=== PATIENT | female | born 1985 | race Caucasian/White ===

== ENCOUNTER 2022-10-19 18:22 | Inpatient (IN) ==
[2022-10-19] MEDS ORDERED: CIPROFLOXACIN / D5W 400 MG/200 ML BAG IV STA (18:53)
--- NOTE | 2022-10-19 18:57 | Emergency Department Note ---
Impression & Plan Pyelonephritis, UTI (urinary tract infection), Positive blood culture ED Provider Note NAME: LYNDA NAVAS AGE: 37 SEX: F : 1985 ARRIVES VIA: Walk-In INFORMANT: Patient ED PROVIDER(S): David Chapman DO CHIEF COMPLAINT: left back pain HPI: Patient is a 37-year-old female who presents to the ER for left flank pain that started last . Patient denies any headache or change in vision. No chest pain or shortness of breath. No belly pain but does have left back pain. No urinary symptoms but admits to frequent UTIs. Patient was seen and evaluated and treated for UTI. ESBL E. coli isolated from urine culture. MRSE isolated from *1 of 1* blood cultures. MRSE may be a skin contaminant, but given lack of 2nd culture, this is difficult to exclude and consequently patient was called back to the ER. Patient notes that she still having sweats at night and combination with left lower back pain. Denies all other complaints at this time but does feel weak and rundown. PAST MEDICAL HISTORY:See Below PAST SURGICAL HISTORY:See Below FAMILY HISTORY:See Below SOCIAL HISTORY:See Below HOME MEDICATIONS:See Below ALLERGIES:See Below VITALS:See Below PHYSICAL EXAMINATION: GENERAL: Sitting up in bed, alert, well appearing, well nourished, no distress, non-toxic, obese EYE EXAM: normal conjunctiva. OROPHARYNX:mucous membranes are moist LUNGS: Clear to auscultation. Normal chest wall mechanics HEART: no murmurs, S1 normal and S2 normal ABDOMEN: abdomen soft, non-tender, normo-active bowel sounds, no masses, no rebound or guarding. BACK: Back is symmetrical on inspection and there is no deformity, no midline tenderness, mild tenderness in the left CVA. SKIN: no rashes and no bruising UPPER EXTREMITIES: upper extremities are grossly normal. LOWER EXTREMITIES: No pitting edema. NEURO EXAM: Normal sensorium, cranial nerves II-XII grossly intact, normal speech, no gross weakness of arms, no gross weakness of legs. MEDICAL DECISION MAKING: Patient is a 37-year-old female who presents ER for above-stated complaint. IV was established blood work was obtained. External records reviewed. Labs show no significant leukocytosis or anemia. BMP with LFTs bilirubin was unremarkable. Pro-Saqib was normal. Troponin was negative. Chest x-ray was clean. Patient was given IV Toradol and Cipro due to sensitivities. Do favor the blood culture was contaminated she notes that she is feeling worse and does not believe she can go home. I did discuss case with Dr. Epps for further evaluation management treatment. Patient was admitted. Triage Nursing notes reviewed. Limited review of prior medical records performed Vital Signs: reviewed and remarkable for HTN Differential diagnosis: Differential diagnoses includes but is not limited to gastritis, peptic ulcer disease, GERD, gallbladder disease, pancreatitis, small bowel obstruction, appendicitis, diverticulitis, hernia, urinary tract infection, torsion, /ectopic (if female), perforation, trauma, infectious. ER treatment provided: See below Diagnostics interpreted by me include EKG and cardiac monitoring as listed below: -Cardiac Monitoring: An order was placed for continuous cardiac monitoring. The monitor shows a rate of 80 with sinus rhythm. -ECG: none -Laboratory studies:Interpreted by me as stated above in MDM and shown below. Imaging studies: Xrays: As interpreted by me:none CTs show: none Consultation(s): As described in MDM Procedures:none Critical Care: None Past Med/Surg History Social History Smoking Status: Never smoker Preferred Language: Senegalese Feels Safe at Home: Yes Allergies Allergies Allergy/AdvReac Type Severity Reaction Status Date / Time clindamycin Allergy Rash Verified 09/03/22 21:06 Home Meds Home Medications Medication Instructions Recorded Confirmed buspirone 5 mg tablet 5 mg PO BID 10/19/22 10/19/22 citalopram 40 mg tablet 40 mg PO DAILY 10/19/22 10/19/22 cyclobenzaprine 10 mg tablet 10 mg PO TID PRN Muscle Spasm 10/19/22 10/19/22 dulaglutide 4.5 mg/0.5 mL 4.5 mg subcut WK 10/19/22 10/19/22 subcutaneous pen injector (Trulicity) duloxetine 30 mg capsule,delayed 30 mg PO DAILY 10/19/22 10/19/22 release omeprazole 20 mg capsule,delayed 20 mg PO DAILY 10/19/22 10/19/22 release Previous Rx's Medication Instructions Recorded cefdinir 300 mg capsule 300 mg PO BID #14 caps 10/17/22 Results & Data (ED) Vital Signs Vital Signs - 24 hr 10/19/22 18:29 10/19/22 19:30 10/19/22 19:30 Temperature 36.8 C Temperature Source Temporal Artery Scan Pulse Rate 88 Pulse Rate [Finger] 88 Pulse Rate from SpO2 Sensor Pulse Rhythm [Finger] Regular Pulse Strength [Finger] Normal Respiratory Rate 18 30 H Respiratory Effort / Characteristics Non-Labored Respiratory Depth Normal Respiratory Pattern Regular Blood Pressure 142/82 H Blood Pressure Mean 102 Pulse Oximetry 97 96 Oxygen Delivery Method Room Air Room Air Room Air Sepsis Recent Fever Within 48 Hours No Sepsis New/Unexplained Change in Mental Status No Sepsis Action Taken by Nursing No Action Required 10/19/22 19:34 10/19/22 20:00 10/19/22 20:30 Temperature Temperature Source Pulse Rate 81 84 Pulse Rate [Finger] Pulse Rate from SpO2 Sensor 82 84 Pulse Rhythm [Finger] Pulse Strength [Finger] Respiratory Rate 22 23 Respiratory Effort / Characteristics Respiratory Depth Respiratory Pattern Blood Pressure 128/94 118/79 Blood Pressure Mean 105 92 Pulse Oximetry 96 96 Oxygen Delivery Method Sepsis Recent Fever Within 48 Hours Sepsis New/Unexplained Change in Mental Status Sepsis Action Taken by Nursing 10/19/22 20:30 10/19/22 21:12 10/19/22 21:12 Temperature Temperature Source Pulse Rate 90 84 Pulse Rate [Finger] Pulse Rate from SpO2 Sensor 89 Pulse Rhythm [Finger] Pulse Strength [Finger] Respiratory Rate 25 H 16 Respiratory Effort / Characteristics Respiratory Depth Respiratory Pattern Blood Pressure 137/84 Blood Pressure Mean 101 Pulse Oximetry 96 Oxygen Delivery Method Sepsis Recent Fever Within 48 Hours Sepsis New/Unexplained Change in Mental Status Sepsis Action Taken by Nursing 10/19/22 19:33 10/19/22 21:30 10/19/22 21:30 Temperature Temperature Source Pulse Rate 86 82 Pulse Rate [Finger] Pulse Rate from SpO2 Sensor 81 Pulse Rhythm [Finger] Pulse Strength [Finger] Respiratory Rate 26 H Respiratory Effort / Characteristics Respiratory Depth Respiratory Pattern Blood Pressure 113/73 Blood Pressure Mean 86 Pulse Oximetry 96 Oxygen Delivery Method Sepsis Recent Fever Within 48 Hours Sepsis New/Unexplained Change in Mental Status Sepsis Action Taken by Nursing Laboratory Data 10/19/22 19:49 10/19/22 19:49 Lab Results 10/19/22 10/19/22 10/19/22 Range/Units 19:49 19:49 19:49 WBC 9.39 (4.8-10.8) K/ul RBC 4.04 L (4.20-5.40) M/uL Hgb 12.1 (12.0-16.0) g/dl Hct 35.6 L (37.0-47.0) % MCV 88.1 (80.0-100.0) fL MCH 30.0 (25.0-34.0) pg MCHC 34.0 (32.0-36.0) g/dL RDW Std Deviation 43.7 (36.4-46.3) fL RDW Coeff of Neo 13.5 (11.5-14.5) % Plt Count 262 (130-400) K/uL MPV 11.0 (9.4-12.4) fL Immature Gran % (Auto) 0.2 % Neut % (Auto) 62.0 % Lymph % (Auto) 29.1 % [place] % (Auto) 7.2 % Eos % (Auto) 1.1 % Baso % (Auto) 0.4 % Neut # (Auto) 5.82 (1.40-6.50) K/uL Lymph # (Auto) 2.73 (1.20-3.40) K/uL [place] # (Auto) 0.68 H (0.11-0.59) K/uL Eos # (Auto) 0.10 (0.00-0.50) K/uL Baso # (Auto) 0.04 (0.00-0.20) K/uL Immature Gran # (Auto) 0.02 (0.01-0.20) K/uL Sodium 139 (136-145) mmol/L Potassium 3.7 (3.5-5.1) mmol/L Chloride 106 (98-107) mmol/L Carbon Dioxide 26 (21-32) mmol/L Anion Gap 7 (3-11) BUN 13 (6-23) mg/dl Creatinine 0.72 (0.6-1.2) mg/dl Est Cr Clr Drug Dosing 177.9 ml/min Est GFR ( Amer) 125.8 ml/min Est GFR (Non-Af Amer) 108.5 ml/min BUN/Creatinine Ratio 18.1 (10-20) Glucose 94 (70-99(Fasting)) mg/dl Lactate 0.8 (0.4-2.0) mmol/L Calcium 9.3 (8.6-10.3) mg/dl Magnesium 2.1 (1.7-2.4) mg/dl Total Bilirubin 0.3 (0.2-1.0) mg/dl Direct Bilirubin 0.1 (0-0.2) mg/dl AST 15 (13-39) U/L ALT 25 (7-52) U/L Alkaline Phosphatase 101 (34-104) U/L Troponin I High Sens 3.4 (0-14) pg/ml Total Protein 6.9 (6.0-8.3) gm/dl Albumin 3.5 (3.4-5.0) gm/dl Procalcitonin (0-0.5) ng/ml 10/19/22 Range/Units 19:49 WBC (4.8-10.8) K/ul RBC (4.20-5.40) M/uL Hgb (12.0-16.0) g/dl Hct (37.0-47.0) % MCV (80.0-100.0) fL MCH (25.0-34.0) pg MCHC (32.0-36.0) g/dL RDW Std Deviation (36.4-46.3) fL RDW Coeff of Neo (11.5-14.5) % Plt Count (130-400) K/uL MPV (9.4-12.4) fL Immature Gran % (Auto) % Neut % (Auto) % Lymph % (Auto) % [place] % (Auto) % Eos % (Auto) % Baso % (Auto) % Neut # (Auto) (1.40-6.50) K/uL Lymph # (Auto) (1.20-3.40) K/uL [place] # (Auto) (0.11-0.59) K/uL Eos # (Auto) (0.00-0.50) K/uL Baso # (Auto) (0.00-0.20) K/uL Immature Gran # (Auto) (0.01-0.20) K/uL Sodium (136-145) mmol/L Potassium (3.5-5.1) mmol/L Chloride (98-107) mmol/L Carbon Dioxide (21-32) mmol/L Anion Gap (3-11) BUN (6-23) mg/dl Creatinine (0.6-1.2) mg/dl Est Cr Clr Drug Dosing ml/min Est GFR ( Amer) ml/min Est GFR (Non-Af Amer) ml/min BUN/Creatinine Ratio (10-20) Glucose (70-99(Fasting)) mg/dl Lactate (0.4-2.0) mmol/L Calcium (8.6-10.3) mg/dl Magnesium (1.7-2.4) mg/dl Total Bilirubin (0.2-1.0) mg/dl Direct Bilirubin (0-0.2) mg/dl AST (13-39) U/L ALT (7-52) U/L Alkaline Phosphatase (34-104) U/L Troponin I High Sens (0-14) pg/ml Total Protein (6.0-8.3) gm/dl Albumin (3.4-5.0) gm/dl Procalcitonin < 0.05 (0-0.5) ng/ml Administered Medications Buspirone HCl (Buspirone 5 Mg Tab) 5 mg PO BID MIMA Stop: 11/18/22 23:30 Last Admin: 10/20/22 00:14 Dose: 5 mg Documented By: SOWMYA Lactated Ringer's (Lr) 1,000 mls @ 80 mls/hr IV .[id number] STA Stop: 10/20/22 09:54 Last Admin: 10/19/22 23:32 Dose: 80 mls/hr Documented By: SOWMYA Insulin Aspart (Insulin Aspart Per Unit Charge) 0 units SC ACHS MIMA Stop: 11/18/22 23:30 Last Admin: 10/20/22 00:16 Dose: Not Given Documented By: SOWMYA Co-signed By: BERTA Discontinued Medications Ciprofloxacin (Cipro / D5w) 400 mg in 200 mls @ 100 mls/hr IV NOW STA; Protocol Stop: 10/19/22 20:52 Last Infusion: 10/19/22 23:31 Dose: 0 mls/hr Documented By: Admin: 10/19/22 19:45 Dose: 100 mls/hr Documented By: GREYSON Ketorolac Tromethamine (Ketorolac Tromethamine 15 Mg/Ml Vial) 15 mg IV NOW ONE Stop: 10/19/22 19:49 Last Admin: 10/19/22 20:02 Dose: 15 mg Documented By: GREYSON Imaging Data Radiologist's Impression: Chest X-Ray 10/19/22 18:54 SINGLE VIEW CHEST CLINICAL HISTORY: Sepsis. FINDINGS: An AP, portable, upright chest radiograph is obtained. No prior studies are available for comparison at the time of dictation. The card iomediastinal silhouette is unremarkable. The lungs and pleural spaces are clear. No pneumothorax is seen. The bony thorax is grossly intact. IMPRESSION: No active disease in the chest. ACT 112: Negative or not required by law. Electronically signed by: Sherwin Bautista M.D. 10/19/2022 7:15 PM Discharge Plan Visit Data Chief Complaint: Testing Request Stated Complaint: TEST REQUEST - CALLED BACK BY NURSE FOR BLOOD CULT ED Provider: David Chapman Discharge Problem: Pyelonephritis, UTI (urinary tract infection), Positive blood culture Patient Disposition: Admitted As Inpatient Discharge Instructions Interventions: ED Discharge Assessment Last Done: 10/19/22 22:46
--- NOTE | 2022-10-19 19:17 | XRay Report ---
SINGLE VIEW CHEST CLINICAL HISTORY: Sepsis. FINDINGS: An AP, portable, upright chest radiograph is obtained. No prior studies are available for c omparison at the time of dictation. The cardiomediastinal silhouette is unremarkable. The lungs and p leural spaces are clear. No pneumothorax is seen. The bony thorax is grossly intact. IMPRESSION: No active disease in the chest. ACT 112: Negative or not required by law. Electronically signed by: Sherwin Bautista M.D. 10/19/2022 7:15 PM
[2022-10-19] MEDS ORDERED: KETOROLAC TROMETHAMINE 15 MG/ML VIAL IV ONE (19:48)
[2022-10-19 20:18] LABS: Basophils # (auto) 0.04 K/uL (0.00-0.20); Basophils % (auto) 0.4 %; Eosinophils % (auto) 1.1 %; Hematocrit (blood only) 35.6 % (37.0-47.0); Hemoglobin 12.1 g/dl (12.0-16.0); Immature Granulocytes # (auto) 0.02 K/uL (0.01-0.20); Immature Granulocytes % (auto) 0.2 %; Lymphocytes # (auto) 2.73 K/uL (1.20-3.40); Lymphocytes % (auto) 29.1 %; Mean Corpuscular Volume 88.1 fL (80.0-100.0); Monocytes # (auto) 0.68 K/uL (0.11-0.59); Monocytes % (auto) 7.2 %; Neutrophils # (auto) 5.82 K/uL (1.40-6.50); Platelet Count 262 K/uL (130-400); RDW Coefficient of Variation 13.5 % (11.5-14.5); RDW Standard Deviation 43.7 fL (36.4-46.3); Red Blood Count 4.04 M/uL (4.20-5.40); White Blood Count 9.39 K/ul (4.8-10.8)
[2022-10-19 20:29] LABS: Albumin Level 3.5 gm/dl (3.4-5.0); BUN Creatinine Ratio 18.1 (10-20); Bilirubin Direct 0.1 mg/dl (0-0.2); Bilirubin,Total 0.3 mg/dl (0.2-1.0); Calcium 9.3 mg/dl (8.6-10.3); Creatinine Clr Calc Pharmacy 177.9 ml/min; Est GFR (African American) 125.8 ml/min; Est GFR (Non-African American) 108.5 ml/min; Magnesium 2.1 mg/dl (1.7-2.4); Potassium 3.7 mmol/L (3.5-5.1); Total Protein 6.9 gm/dl (6.0-8.3)
[2022-10-19 20:36] LABS: Troponin I High Sensitivity 3.4 pg/ml (0-14)
[2022-10-19] MEDS ORDERED: LACTATED RINGER'S 1,000 ML IV STA (21:25)
--- NOTE | 2022-10-19 21:50 | History & Physical Report ---
Date of Service October 19, 2022 Assessment & Plan (1) Complicated UTI (urinary tract infection): Plan: Recurrent/persistent ESBL E. coli UTI infections no sepsis for now Gram-positive bacteremia 1 bottle from recent [facility] ER visit (10/17) Possible contaminant Patient currently not septic. DM 2 on Trulicity, well-controlled as of recent hemoglobin A1c of 5.4 last July 2022 hx NAFLD GERD/IBS, baseline symptoms hx chronic back pain/sacroiliitis anxiety/mood disorder, stable GMF Repeat UA, Ertapenem for now Repeat blood CS Urology consult as per patient request Re: Recurrent UTIs ID consult contingent on final CS results ISS BG goal 1 10-1 40, carb count coverage DVT prophylaxis with Lovenox subcu Full code Text document was generated using [employer] voice recognition software. It may contain grammatical or spelling errors. Kindly contact undersigned for clarification of any documentation item in question. History of Present Illness Chief Complaint: Abnormal labs, not feeling well Primary Care Provider: Red Mitchell MD History obtained from patient, family, and records. Medical history significant for DM 2 on Trulicity, NAFLD, GERD, IBS, hyperlipidemia, recent ESBL E. coli UTI, chronic back pain/sacroiliitis, anxiety/mood disorder, past tobacco abuse. 09/03 Patient seen at [facility] ER for headache and UTI complaints. Patient discharged on Keflex course. Urine CS later grew ESBL E. coli. 09/[address] [facility] ER abdominal pain and UTI complaints. Patient discharged on Augmentin course for possible pyelonephritis. [facility] pharmacist later recommended Ciprofloxacin course in place of Augmentin. Patient completed outpatient Ciprofloxacin course. 10/02 Patient underwent outpatient fluoroscopic guided left sacroiliac joint injection for sacroiliitis by [facility] Pain management. 10/10 Patient sustained laceration on her right foot after accidentally stepping on a broken mug. Right foot laceration sutured at [facility]. 10/17 Patient consulted [facility] ER for 5 days history of achy left flank pain symptoms with chills. No hematuria, no fever. No chest pain, no SOB. No acute findings on CT abdomen pelvis. Patient discharged on Cefdinir for UTI. Final urine CS grew ESBL E. coli (ciprofloxacin sensitive) today. 1 bottle blood cultures growing gram-positive cocci in clusters. [facility] pharmacist called patient and recommended ER evaluation. Patient still feeling crappy. IV Ciprofloxacin administered at the ER. 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 Allergies Allergy/AdvReac Type Severity Reaction Status Date / Time clindamycin Allergy Rash Verified 09/03/22 21:06 Home Medications Medication Instructions Recorded Confirmed Type cefdinir 300 mg capsule 300 mg PO BID #14 caps 10/17/22 10/19/22 Rx buspirone 5 mg tablet 5 mg PO BID 10/19/22 10/19/22 History citalopram 40 mg tablet 40 mg PO DAILY 10/19/22 10/19/22 History cyclobenzaprine 10 mg tablet 10 mg PO TID PRN Muscle Spasm 10/19/22 10/19/22 History dulaglutide 4.5 mg/0.5 mL 4.5 mg subcut WK 10/19/22 10/19/22 History subcutaneous pen injector (Trulicity) duloxetine 30 mg capsule,delayed 30 mg PO DAILY 10/19/22 10/19/22 History release omeprazole 20 mg capsule,delayed 20 mg PO DAILY 10/19/22 10/19/22 History release Past Med/Surg History Social History Smoking Status: Never smoker Second Hand Exposure: No; Do You Dip or Chew Tobacco: No; Hx Alcohol Use: No Hx Substance Use: No Preferred Language: Maldivian Communication Ability: Effective Management Retail Intern Required: No Beliefs That Will Affect Care: None Current Living Situation: Family Other Information That Helps Us Care for You: No Feels Safe at Home: Yes Safety Concerns: Feels Safe At This Time Assistive Devices: Glasses Review of Systems Review of Systems: As per HPI, all other systems reviewed and negative Physical Exam Physical Exam: GENERAL: Comfortable, morbidly obese, pleasant, no respiratory distress SKIN: Normal color, warm HEENT: Bespectacled, [place] palpebral conjunctivae, no ptosis, dry buccal mucosa NECK : Supple, short neck, no tenderness CHEST : CTA, no tenderness HEART : RRR, no obvious murmurs ABDOMEN: Some distention, nontender EXTREMITIES : Minimal LE swelling, no LE tenderness, no other conspicuous deformities noted NEUROLOGIC : Coherent, no facial asymmetry, no other gross focality Results & Data Results & Data Vital Signs (Past 12 Hours) Vital Signs Temp Pulse Pulse Resp BP Pulse Ox O2 Del Method 10/19/22 21:12 137/84 10/19/22 21:12 84 16 10/19/22 20:30 90 25 H 96 10/19/22 20:30 118/79 10/19/22 20:00 84 23 128/94 96 10/19/22 19:34 81 22 96 10/19/22 19:30 Room Air 10/19/22 19:30 88 30 H 96 Room Air 10/19/22 18:29 36.8 C 88 18 142/82 H 97 Room Air Laboratory Results Laboratory Results WBC 9.39 K/ul (4.8-10.8) 10/19/22 19:49 RBC 4.04 M/uL (4.20-5.40) L 10/19/22 19:49 Hgb 12.1 g/dl (12.0-16.0) 10/19/22 19:49 Hct 35.6 % (37.0-47.0) L 10/19/22 19:49 MCV 88.1 fL (80.0-100.0) 10/19/22 19:49 MCH 30.0 pg (25.0-34.0) 10/19/22 19:49 MCHC 34.0 g/dL (32.0-36.0) 10/19/22 19:49 RDW Std Deviation 43.7 fL (36.4-46.3) 10/19/22 19:49 RDW Coeff of Neo 13.5 % (11.5-14.5) 10/19/22 19:49 Plt Count 262 K/uL (130-400) 10/19/22 19:49 MPV 11.0 fL (9.4-12.4) 10/19/22 19:49 Immature Gran % (Auto) 0.2 % 10/19/22 19:49 Neut % (Auto) 62.0 % 10/19/22 19:49 Lymph % (Auto) 29.1 % 10/19/22 19:49 [place] % (Auto) 7.2 % 10/19/22 19:49 Eos % (Auto) 1.1 % 10/19/22 19:49 Baso % (Auto) 0.4 % 10/19/22 19:49 Neut # (Auto) 5.82 K/uL (1.40-6.50) 10/19/22 19:49 Lymph # (Auto) 2.73 K/uL (1.20-3.40) 10/19/22 19:49 [place] # (Auto) 0.68 K/uL (0.11-0.59) H 10/19/22 19:49 Eos # (Auto) 0.10 K/uL (0.00-0.50) 10/19/22 19:49 Baso # (Auto) 0.04 K/uL (0.00-0.20) 10/19/22 19:49 Immature Gran # (Auto) 0.02 K/uL (0.01-0.20) 10/19/22 19:49 Sodium 139 mmol/L (136-145) 10/19/22 19:49 Potassium 3.7 mmol/L (3.5-5.1) 10/19/22 19:49 Chloride 106 mmol/L (98-107) 10/19/22 19:49 Carbon Dioxide 26 mmol/L (21-32) 10/19/22 19:49 Anion Gap 7 (3-11) 10/19/22 19:49 BUN 13 mg/dl (6-23) 10/19/22 19:49 Creatinine 0.72 mg/dl (0.6-1.2) 10/19/22 19:49 Est Cr Clr Drug Dosing 177.9 ml/min 10/19/22 19:49 Est GFR ( Amer) 125.8 ml/min 10/19/22 19:49 Est GFR (Non-Af Amer) 108.5 ml/min 10/19/22 19:49 BUN/Creatinine Ratio 18.1 (10-20) 10/19/22 19:49 Glucose 94 mg/dl (70-99(Fasting)) 10/19/22 19:49 Lactate 0.8 mmol/L (0.4-2.0) 10/19/22 19:49 Calcium 9.3 mg/dl (8.6-10.3) 10/19/22 19:49 Magnesium 2.1 mg/dl (1.7-2.4) 10/19/22 19:49 Total Bilirubin 0.3 mg/dl (0.2-1.0) 10/19/22 19:49 Direct Bilirubin 0.1 mg/dl (0-0.2) 10/19/22 19:49 AST 15 U/L (13-39) 10/19/22 19:49 ALT 25 U/L (7-52) 10/19/22 19:49 Alkaline Phosphatase 101 U/L (34-104) 10/19/22 19:49 Troponin I High Sens 3.4 pg/ml (0-14) 10/19/22 19:49 Total Protein 6.9 gm/dl (6.0-8.3) 10/19/22 19:49 Albumin 3.5 gm/dl (3.4-5.0) 10/19/22 19:49 Procalcitonin < 0.05 ng/ml (0-0.5) 10/19/22 19:49 Impressions Chest X-Ray 10/19/22 18:54 SINGLE VIEW CHEST CLINICAL HISTORY: Sepsis. FINDINGS: An AP, portable, upright chest radiograph is obtained. No prior studies are available for comparison at the time of dictation. The cardiomediastinal silhouette is unremarkable. The lungs and pleural spaces are clear. No pneumothorax is seen. The bony thorax is grossly intact. IMPRESSION: No active disease in the chest. ACT 112: Negative or not required by law. Electronically signed by: Sherwin Bautista M.D. 10/19/2022 7:15 PM Diagnostic Findings EKG as per my interpretation : Rate 85, NSR, normal axis, no ischemia
[2022-10-19] MEDS ORDERED: LORazepam 0.5 MG TAB PO PRN (21:54)
[2022-10-19] MEDS ORDERED: IBUPROFEN 200 MG TAB PO PRN (21:54)
[2022-10-19] MEDS ORDERED: KETOROLAC TROMETHAMINE 15 MG/ML VIAL IV PRN (21:54)
[2022-10-19] MEDS ORDERED: ACETAMINOPHEN 500 MG TAB PO PRN (21:54)
[2022-10-19] MEDS ORDERED: PROMETHAZINE HCL 12.5 MG in SODIUM CHLORIDE 0.9% 50 ML IV PRN (21:54)
[2022-10-19] MEDS ORDERED: GLUCOSE 10 TAB/TUBE PO PRN (23:31)
[2022-10-19] MEDS ORDERED: GLUCOSE 40% GEL 15 GM TUBE PO PRN (23:31)
[2022-10-19] MEDS ORDERED: GLUCAGON FOR INJ 1 MG VIAL SQ PRN (23:31)
[2022-10-19] MEDS ORDERED: CYCLOBENZAPRINE HCL 10 MG TAB PO PRN (23:31)
[2022-10-19] MEDS ORDERED: CARBOHYDRATES FOR HYPOGLYCEMIA PO PRN (23:31)
[2022-10-19] MEDS ORDERED: DEXTROSE 50% 50 ML SYRINGE IV PRN (23:31)
[2022-10-20] MEDS: busPIRone 5 MG TAB PO SCH ×3 (00:14→21:03)
[2022-10-20] MEDS: INSULIN ASPART PER UNIT CHARGE SC SCH ×5 (00:16→20:48)
[2022-10-20] MEDS: ERTAPENEM SODIUM 1,000 MG in SYRINGE 0 ML IV SCH (03:21)
[2022-10-20 03:33] LABS: Appearance Urine Clear (Clear); Bilirubin Urine Negative (Negative); Blood Urine Negative (Negative); Color Urine Yellow; Glucose Urine UA Negative (Negative); Ketones Urine Negative (Negative); Leukocyte Esterase Urine Negative (Negative); Nitrite Urine Negative (Negative); Protein Urine Negative (Negative); Specific Gravity Urine 1.026 (1.000-1.030); Urobilinogen Urine Negative (Negative); pH Urine 5.5 (4.5-7.5)
[2022-10-20 06:11] LABS: Basophils # (auto) 0.04 K/uL (0.00-0.20); Basophils % (auto) 0.6 %; Eosinophils # (auto) 0.13 K/uL (0.00-0.50); Eosinophils % (auto) 1.8 %; Hematocrit (blood only) 33.7 % (37.0-47.0); Hemoglobin 11.3 g/dl (12.0-16.0); Immature Granulocytes # (auto) 0.01 K/uL (0.01-0.20); Immature Granulocytes % (auto) 0.1 %; Lymphocytes # (auto) 2.18 K/uL (1.20-3.40); Mean Corpuscular Hemoglobin 29.4 pg (25.0-34.0); Mean Corpuscular Hgb Conc 33.5 g/dL (32.0-36.0); Mean Corpuscular Volume 87.5 fL (80.0-100.0); Monocytes # (auto) 0.54 K/uL (0.11-0.59); Monocytes % (auto) 7.7 %; Neutrophils # (auto) 4.13 K/uL (1.40-6.50); Neutrophils % (auto) 58.8 %; Platelet Count 244 K/uL (130-400); RDW Coefficient of Variation 13.6 % (11.5-14.5); RDW Standard Deviation 43.2 fL (36.4-46.3); Red Blood Count 3.85 M/uL (4.20-5.40); White Blood Count 7.03 K/ul (4.8-10.8)
[2022-10-20 06:27] LABS: Calcium 8.8 mg/dl (8.6-10.3); Creatinine Clr Calc Pharmacy 215.3 ml/min; Est GFR (African American) 136.9 ml/min; Est GFR (Non-African American) 118.1 ml/min; Potassium 3.6 mmol/L (3.5-5.1)
[2022-10-20] MEDS: ENOXAPARIN INJ 40 MG/0.4 ML SYR SQ SCH (07:39)
[2022-10-20] MEDS: PANTOprazole 40 MG TAB PO SCH (07:39)
[2022-10-20] MEDS: DULoxetine HCL 30 MG CAP PO SCH (07:39)
[2022-10-20] MEDS: CITALOPRAM 40 MG TAB PO SCH (07:39)
[2022-10-20] MEDS ORDERED: CIPROFLOXACIN / D5W 400 MG/200 ML BAG IV SCH (08:00)
--- NOTE | 2022-10-20 08:53 | Urology Consultation ---
Date of Consultation October 20, 2022 Assessment & Plan (1) Complicated UTI (urinary tract infection): (2) UTI (urinary tract infection): (3) Pyelonephritis: (4) Positive blood culture: Plan Patient with recurrent UTIs and significant ESBL UTI with infection of the lungs and bother. Patient has history of recurrent UTIs with bother. Has been having resistant issues. Was admitted and placed on broad-spectrum antibiotics. Is undergoing supportive care. Patient underwent CT imaging which was reviewed interpreted by myself. No signs of considerable obstruction stones or other issues. Patient did have blood cultures which showed possible contaminant versus skin alona versus other issue. Patient is being monitored closely. Vitals have currently been stable. Most recent temperature is 36.4. Blood pressure 138/91 pulse 72. Oxygenating with oxygen saturation of 98% on room air. Patient had blood work with current white count being 7.03. Creatinine 0.6. Hemoglobin 11.3. White count is down from initial admission. Discussed extensively recurrent UTIs. Discussed potential work-up. Discussed evaluation. Discussed possible contributing factors. Discussed options moving forward. At this point we will plan for supportive care with antibiotics and close monitoring. We will plan to move forward with work-up as an outpatient in the next few weeks. We will likely need cystoscopy for full assessment in order to assess for possible ulcers or other anatomic issues or problems may be contributing. May also need further evaluation for multidrug-resistant infections with ESBL E. coli. Patient complicated medical and surgical history is reviewed and as above all imaging was reviewed interpreted by myself. Patient's family and medical history are as above. No significant family history of stone problems. Discussed plan extensively with patient. Discussed options moving forward. We will plan to finish course of antibiotics with plans for outpatient work-up. History of Present Illness Attending Physician: Tristin Mendoza MD History of Present Illness New consultation for patient with UTI/Pyelo, discomfort, and ill feelings. Patient developed sudden onset of pain into flank going down and radiating into groin and back in waves comes and goes. Can be severe at times. Discussed and reviewed patient's family history for any history of issues, infections, and disease. Also, discussed patient's medical/surgery history especially related to any history of urinary issues or stone disease. Patient was admitted and is undergoing observation with broad spectrum IV antibiotics. Allergies Allergy/AdvReac Type Severity Reaction Status Date / Time clindamycin Allergy Rash Verified 09/03/22 21:06 Home Medications Medication Instructions Recorded Confirmed Type cefdinir 300 mg capsule 300 mg PO BID #14 caps 10/17/22 10/19/22 Rx buspirone 5 mg tablet 5 mg PO BID 10/19/22 10/19/22 History citalopram 40 mg tablet 40 mg PO DAILY 10/19/22 10/19/22 History cyclobenzaprine 10 mg tablet 10 mg PO TID PRN Muscle Spasm 10/19/22 10/19/22 History dulaglutide 4.5 mg/0.5 mL 4.5 mg subcut WK 10/19/22 10/19/22 History subcutaneous pen injector (Trulicity) duloxetine 30 mg capsule,delayed 30 mg PO DAILY 10/19/22 10/19/22 History release omeprazole 20 mg capsule,delayed 20 mg PO DAILY 10/19/22 10/19/22 History release Patient History Social History Smoking Status: Never smoker Second Hand Exposure: No; Do You Dip or Chew Tobacco: No; Hx Alcohol Use: No Hx Substance Use: No Preferred Language: Armenian Communication Ability: Effective Manager Cath Lab Required: No Beliefs That Will Affect Care: None Current Living Situation: Family Other Information That Helps Us Care for You: No Feels Safe at Home: Yes Safety Concerns: Feels Safe At This Time Assistive Devices: Glasses Review of Systems Review of Systems: All systems reviewed & are unremarkable except as noted in HPI & below Physical Exam Physical Exam: General: Alert and oriented x 3 in no acute distress. Patient is well nourished and well kept. Obese HEENT: Normocephalic Atraumatic. Inspection normal. Cranial Nerves 2-12 Grossly intact. Nares are clear. Neck is supple. Normal inspection of face. N ormal inspection of neck. Neurologic: No deficits on inspection. Baseline for motor function and sensory. Psychologic: Normal affect. Respiratory: Nonlabored. No use of accessory muscles. No tachypnea or dyspnea. Cardiovascular: No tachycardia Skin: Sheldahl and Dry. No rashes or visible lesions. Extremities: Moving without issues. No motor deficits on inspection Lymphatics: No edema Abdomen: Soft Non-distended. No rebound or guarding. Results & Data Vital Signs (Past 12 Hours) Vital Signs Temp Pulse Pulse Resp BP BP Pulse Ox 10/20/22 07:11 36.4 C L 72 18 138/91 98 10/19/22 23:30 36.6 C 77 16 130/82 98 10/19/22 23:00 82 25 H 121/65 95 10/19/22 22:30 78 24 95 10/19/22 22:30 129/85 10/19/22 22:00 82 26 H 96 10/19/22 22:00 120/85 10/19/22 21:30 82 26 H 96 10/19/22 21:30 113/73 10/19/22 21:12 137/84 10/19/22 21:12 84 16 O2 Del Method 10/20/22 07:11 Room Air 10/19/22 23:30 Room Air 10/19/22 23:00 10/19/22 22:30 10/19/22 22:30 10/19/22 22:00 10/19/22 22:00 10/19/22 21:30 10/19/22 21:30 10/19/22 21:12 10/19/22 21:12 PG Care Time/CCT Total # of Minutes Spent Total Time Spent with Patient: Total time spent is greater than 50% in coordination of care (as documented) at patient's floor/unit and/or counseling patient: Coding Level of Care Code 62070 IN/OBS CONSULT LVL 5,80M Diagnoses Complicated UTI (urinary tract infection) N39.0 UTI (urinary tract infection) N39.0 Pyelonephritis N12 Positive blood culture R78.81
--- NOTE | 2022-10-20 18:11 | Hospitalist Progress Note ---
Date of Service October 20, 2022 Assessment & Plan (1) Complicated UTI (urinary tract infection): Plan: Recurrent/persistent ESBL E. coli UTI infections Gram-positive bacteremia 1 bottle from recent [facility] ER visit (10/17) Possible contaminant Repeat blood cultures: Pending On ertapenem IV ID service consulted Right foot wound Sustained after injury with broken glass Status post suture removal today Wound healing well DM 2 on Trulicity, well-controlled as of recent hemoglobin A1c of 5.4 last July 2022 hx NAFLD GERD/IBS, baseline symptoms hx chronic back pain/sacroiliitis anxiety/mood disorder, stable DVT prophylaxis with Lovenox subcu Full code Admission and Anticipated Discharge Date Admission Date: October 19, 2022 Subjective Follow-up for UTI, etc. Seen resting in bed, sleeping but easily awakened States she feels tired but otherwise okay Denies abdominal pain, nausea urination Denies foot pain No fevers or chills No other symptoms Review of Systems Review of Systems: all noted and negative except for above Physical Exam Physical Exam: General- oriented x 3, not in distress, speaks in sentences with no effort or accessory muscle use Head- atraumatic Eyes- PERRL, EOMI, anicteric ENT- oropharynx clear Neck- supple, no JVD, no adenopathy, no thyromegaly; carotids +2/2, no bruits appreciated Lungs- clear to auscultation bilaterally, no rales/wheezes Heart- normal rate, regular rhythm; no murmur, no gallop, no rub appreciated Abdomen- normal bowel sounds, nondistended, soft, nontender, no masses or hepatosplenomegaly Extremities- no pretibial edema, no calf tenderness; peripheral pulses intact Right foot-sutured wound healing well, no signs of infection Neuro- alert, oriented x 3; CN 2-12 grossly intact; motor 5/5 bilaterally;sensation 100% on all extremities; no other gross focal neurologic deficits Skin- warm & dry Results & Data Results & Data Vital Signs (Past 12 Hours) Vital Signs Temp Pulse Resp BP Pulse Ox O2 Del Method 10/20/22 14:52 36.3 C L 79 16 128/88 98 Room Air 10/20/22 08:00 Room Air 10/20/22 07:11 36.4 C L 72 18 138/91 98 Room Air all noted and reviewed including below
--- NOTE | 2022-10-20 20:53 | Electrocardiogram Report ---
Test Reason : Blood Pressure : / mmHG Vent. Rate : 087 BPM Atrial Rate : 087 BPM P-R Int : 158 ms QRS Dur : 080 ms QT Int : 364 ms P-R-T Axes : 027 054 028 degrees QTc Int : 438 ms Normal sinus rhythm Normal ECG No previous ECGs available Confirmed by Rasheed Flores ([id number]) on 10/20/2022 8:52:44 PM Referred By: [facility] Confirmed By:Rasheed Flores
[2022-10-21] MEDS: ERTAPENEM SODIUM 1,000 MG in SYRINGE 0 ML IV SCH (06:03)
[2022-10-21] MEDS: busPIRone 5 MG TAB PO SCH ×2 (07:26→21:10)
[2022-10-21] MEDS: ENOXAPARIN INJ 40 MG/0.4 ML SYR SQ SCH (07:26)
[2022-10-21] MEDS: DULoxetine HCL 30 MG CAP PO SCH (07:26)
[2022-10-21] MEDS: CITALOPRAM 40 MG TAB PO SCH (07:26)
[2022-10-21] MEDS: PANTOprazole 40 MG TAB PO SCH (07:26)
[2022-10-21] MEDS: INSULIN ASPART PER UNIT CHARGE SC SCH ×4 (07:55→20:21)
[2022-10-21] MEDS: ADVANCED PROBIOTIC 1250 MG CAPSULE PO SCH (11:08)
--- NOTE | 2022-10-21 18:44 | Hospitalist Progress Note ---
Date of Service October 21, 2022 Assessment & Plan (1) Complicated UTI (urinary tract infection): Plan: (1) Complicated UTI (urinary tract infection): Plan: Recurrent/persistent ESBL E. coli UTI infections Urine culture: E. coli ESBL Blood culture: Positive coag negative staph in 1 bottle Repeat blood cultures: Negative so far On ertapenem IV day #2 ID service consulted, awaiting recommendations Right foot wound Sustained after injury with broken glass Status post suture removal 10/20 Wound healing well DM 2 on Trulicity, well-controlled as of recent hemoglobin A1c of 5.4 last July 2022 hx NAFLD GERD/IBS, baseline symptoms hx chronic back pain/sacroiliitis anxiety/mood disorder, stable DVT prophylaxis with Lovenox subcu Full code Disposition Anticipate discharge to home with IV antibiotics plan of care discussed with patient in detail and at length all questions answered she is understanding, agreeable, comfortable with the plan of care Admission and Anticipated Discharge Date Admission Date: October 19, 2022 Subjective Follow-up for recurrent UTIs, etc. Seen resting in bed, not in distress States she continues to feels improved overall No fevers or chills Dysuria improving, abdominal discomfort also improving No foot pain No other symptom Review of Systems Review of Systems: all noted and negative except for above Physical Exam Physical Exam: General- oriented x 3, not in distress, speaks in sentences with no effort or accessory muscle use Eyes- anicteric Neck- no JVD Lungs- clear breath sounds bilaterally, no rales/wheezes Heart- normal rate, regular rhythm; no murmurs Abdomen- normal bowel sounds, nondistended, soft, nontender Extremities- no pretibial edema, no calf tenderness Neuro- alert, oriented x 3; no gross focal neurologic deficits Skin- warm & dry Results & Data Results & Data Vital Signs (Past 12 Hours) Vital Signs Temp Pulse Resp BP Pulse Ox O2 Del Method 10/21/22 15:22 36.8 C 73 15 107/76 98 Room Air 10/21/22 08:00 Room Air 10/21/22 08:43 36.4 C L 74 16 132/86 96 Room Air all noted and reviewed including below
[2022-10-22] MEDS: ERTAPENEM SODIUM 1,000 MG in SYRINGE 0 ML IV SCH (06:26)
[2022-10-22] MEDS: ENOXAPARIN INJ 40 MG/0.4 ML SYR SQ SCH (09:07)
[2022-10-22] MEDS: CITALOPRAM 40 MG TAB PO SCH (09:08)
[2022-10-22] MEDS: ADVANCED PROBIOTIC 1250 MG CAPSULE PO SCH (09:08)
[2022-10-22] MEDS: DULoxetine HCL 30 MG CAP PO SCH (09:08)
[2022-10-22] MEDS: busPIRone 5 MG TAB PO SCH ×2 (09:09→20:25)
[2022-10-22] MEDS: PANTOprazole 40 MG TAB PO SCH (09:09)
[2022-10-22] MEDS: INSULIN ASPART PER UNIT CHARGE SC SCH ×4 (09:13→20:35)
--- NOTE | 2022-10-22 09:52 | Infectious Disease Consult ---
Date of Consultation October 22, 2022 Assessment & Plan Plan Patient who presented with flank pain and chills and whose urine culture grew ESBL E Coli for which she is on IV ertapenem .The ESBL E Coli in her urine is susceptible to both ciprofloxacin and augmentin and she has previously been treated with both of these oral antibiotics and continues to be symptomatic .Agree with treating with ertapenem for a total of 14 days .Her blood cultures that grew ROSIN BARREL FILLER likely represents contamination and if repeat blood cultures remain negative would not recommend treating Consultation Information Consultation was provided via telemedicine using two-way real-time interactive telecommunication between the patient and the telemedicine provider. For the duration of the visit, the provider was performing the assessment from a different facility than the patient. This includesuse of bluetooth stethoscope forauscultationperformed by the telepresenter that the telemedicine provider can hear if described in the physical exam. [employer] contact information: Please call [facility] . (Phone Number For Physician Use Only) History of Present Illness Reason for Consultation: esbl e coli UTI, staph bacteremia Attending Physician: Tristin Mendoza MD History of Present Illness 37 y/o F PMHx DM 2 on Trulicity, NAFLD, GERD, IBS, hyperlipidemia, recent ESBL E. coli UTI, chronic back pain/sacroiliitis, anxiety/mood disorder, past tobacco abuse.Patient seen at [facility] ER for headache and UTI on 09/03/22 and was discharged on Keflex and urine CS later grew ESBL E. coli.On 09/06 she was seen at [facility] ER with abdominal pain and UTI complaints and was discharged on Augmentin for possible pyelonephritis this was later switched to Ciprofloxacin on the recommendation of the pharmacist.On 10/02/22 she underwent outpatient fluoroscopic guided left sacroiliac joint injection for sacroiliitis by [facility] Pain management.On 10/17/22 she p/w to [facility] ER for 5 days history of achy left flank pain symptoms with chills and was discharged on Cefdinir for UTI.Final urine CS grew ESBL E. coli (ciprofloxacin sensitive)and 1 bottle blood cultures growing gram-positive cocci in clusters she was started on IV Ciprofloxacin in the ER and later switched to IV ertapenem .Her blood cultures have grown ROSIN BARREL FILLER in 1/4 BT repeat blood cultures are NGTD Allergies Allergy/AdvReac Type Severity Reaction Status Date / Time clindamycin Allergy Rash Verified 09/03/22 21:06 Home Medications Medication Instructions Recorded Confirmed Type cefdinir 300 mg capsule 300 mg PO BID #14 caps 10/17/22 10/19/22 Rx buspirone 5 mg tablet 5 mg PO BID 10/19/22 10/19/22 History citalopram 40 mg tablet 40 mg PO DAILY 10/19/22 10/19/22 History cyclobenzaprine 10 mg tablet 10 mg PO TID PRN Muscle Spasm 10/19/22 10/19/22 History dulaglutide 4.5 mg/0.5 mL 4.5 mg subcut WK 10/19/22 10/19/22 History subcutaneous pen injector (Trulicity) duloxetine 30 mg capsule,delayed 30 mg PO DAILY 10/19/22 10/19/22 History release omeprazole 20 mg capsule,delayed 20 mg PO DAILY 10/19/22 10/19/22 History release Patient History Social History Smoking Status: Never smoker Second Hand Exposure: No; Do You Dip or Chew Tobacco: No; Hx Alcohol Use: No Hx Substance Use: No Preferred Language: Israeli Communication Ability: Effective Plug Machine Operator Required: No Beliefs That Will Affect Care: None Current Living Situation: Family Other Information That Helps Us Care for You: No Feels Safe at Home: Yes Safety Concerns: Feels Safe At This Time Assistive Devices: None Results & Data Vital Signs (Past 12 Hours) Vital Signs Temp Pulse Resp BP Pulse Ox O2 Del Method 10/22/22 07:30 36.4 C L 70 18 110/76 97 Room Air Laboratory Results WBC 7030 Diagnostic Findings CNSnl RX M.I.C. --- --------- Clindamycin S <=0.5 Daptomycin S <=0.5 Erythromycin R >4 Oxacillin S <=0.25 Tetracycline R >8 Trimeth/Sulfa S <=0.5/9.5 Vancomycin S 1 S = SENSITIVE I = INTERMEDIATE R = RESISTANT ESBL E col RX M.I.C. --- --------- Amox/Clav S <=8/4 Ampicillin R >16 Amp/Sul I 16/8 Cefazolin R >16 Cefepime R >16 Cefotaxime R >16 Ceftriaxone R >2 Ciprofloxacin S <=0.25 Ertapenem S <=0.5 Gentamicin R >8 Levofloxacin S <=0.5 Meropenem S <=1 Nitrofurantoin S <=32 Tobramycin I 8 Trimeth/Sulfa R >2/38 Pip/Tazo S <=16 S = SENSITIVE I = INTERMEDIATE R = RESISTANT
--- NOTE | 2022-10-22 16:33 | Hospitalist Progress Note ---
Date of Service October 22, 2022 Assessment & Plan (1) Complicated UTI (urinary tract infection): Plan: (1) Complicated UTI (urinary tract infection): Plan: Recurrent/persistent ESBL E. coli UTI infections Urine culture: E. 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 abx Urology also consulted for recurrent UTIs recommend outpatient Cystoscopy Right foot wound Sustained after injury with broken glass Status post suture removal at bedside by myself 10/20 Wound healing well DM 2 on Trulicity, well-controlled as of recent hemoglobin A1c of 5.4 last July 2022 hx NAFLD GERD/IBS, baseline symptoms hx chronic back pain/sacroiliitis anxiety/mood disorder, stable DVT prophylaxis with Lovenox subcu Full code Disposition discharge to home with IV antibiotics 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 plan of care discussed with patient in detail all questions answered she is understanding, agreeable, comfortable with the plan of care Admission and Anticipated Discharge Date Admission Date: October 19, 2022 Subjective ff up for UTI, etc seen resting in bed, comfortable, in good spirits states she feels fine overall no abdominal pain, fever/chills, problems with urination no other symptoms Review of Systems Review of Systems: all noted and negative except for above Physical Exam Physical Exam: General- oriented x 3, not in distress, speaks in sentences with no effort or accessory muscle use Eyes- anicteric Neck- no JVD Lungs- clear BS bilaterally, no crackles or wheezing Heart- normal rate, regular rhythm; no murmurs Abdomen- normal bowel sounds, nondistended, soft, no tenderness Extremities- no pretibial edema, no calf tenderness Neuro- alert, oriented x 3; no gross focal neurologic deficits Skin- warm & dry Results & Data Results & Data Vital Signs (Past 12 Hours) Vital Signs Temp Pulse Resp BP Pulse Ox O2 Del Method 10/22/22 07:35 Room Air 10/22/22 07:30 36.4 C L 70 18 110/76 97 Room Air all noted and reviewed including below
[2022-10-23] MEDS: ERTAPENEM SODIUM 1,000 MG in SYRINGE 0 ML IV SCH (05:32)
[2022-10-23] MEDS: ADVANCED PROBIOTIC 1250 MG CAPSULE PO SCH (08:30)
[2022-10-23] MEDS: PANTOprazole 40 MG TAB PO SCH (08:30)
[2022-10-23] MEDS: busPIRone 5 MG TAB PO SCH (08:31)
[2022-10-23] MEDS: DULoxetine HCL 30 MG CAP PO SCH (08:31)
[2022-10-23] MEDS: CITALOPRAM 40 MG TAB PO SCH (08:31)
[2022-10-23] MEDS: INSULIN ASPART PER UNIT CHARGE SC SCH ×2 (08:32→12:17)
[2022-10-23] MEDS: ENOXAPARIN INJ 40 MG/0.4 ML SYR SQ SCH (08:33)
--- NOTE | 2022-10-23 11:32 | Discharge Summary ---
Discharge Summary Date of Service October 23, 2022 Notes For Next Care Provider Patient with recurrent ESBL UTI. She required total of 14 days of IV ertapenem which will be administered at the [facility]. She will need follow-up with [facility] regarding further investigation for recurrent UTIs. They are planning outpatient cystoscopy once infection treated. They are to arrange outpatient follow-up. Medication Changes From Visit IV Ertapenem 1g daily for a total for 14 days. This will complete on 10/31/22. [facility] Admission HPI Per Admitting Provider History obtained from patient, family, and records. Medical history significant for DM 2 on Trulicity, NAFLD, GERD, IBS, hype rlipidemia, recent ESBL E. coli UTI, chronic back pain/sacroiliitis, anxiety/mood disorder, past tobacco abuse. 09/03 Patient seen at [facility] ER for headache and UTI complaints. Patient discharged on Keflex course. Urine CS later grew ESBL E. coli. 09/06 Patient seen at [facility] ER abdominal pain and UTI complaints. Patient discharged on Augmentin course for possible pyelonephritis. [facility] pharmacist later recommended Ciprofloxacin course in place of Augmentin. Patient completed outpatient Ciprofloxacin course. 10/02 Patient underwent outpatient fluoroscopic guided left sacroiliac joint injection for sacroiliitis by [facility] Pain management. 10/10 Patient sustained laceration on her right foot after accidentally stepping on a broken mug. Right foot laceration sutured at [facility]. 10/17 Patient consulted [facility] ER for 5 days history of achy left flank pain symptoms with chills. No hematuria, no fever. No chest pain, no SOB. No acute findings on CT abdomen pelvis. Patient discharged on Cefdinir for UTI. Final urine CS grew ESBL E. coli (ciprofloxacin sensitive) today. 1 bottle blood cultures growing gram-positive cocci in clusters. [facility] pharmacist called patient and recommended ER evaluation. Patient still feeling crappy. IV Ciprofloxacin administered at the ER. 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 Admission Exam Per Admitting Provider GENERAL: Comfortable, morbidly obese, pleasant, no respiratory distress SKIN: Normal color, warm HEENT: Bespectacled, [place] palpebral conjunctivae, no ptosis, dry buccal mucosa NECK : Supple, short neck, no tenderness CHEST : CTA, no tenderness HEART : RRR, no obvious murmurs ABDOMEN: Some distention, nontender EXTREMITIES : Minimal LE swelling, no LE tenderness, no other conspicuous deformities noted NEUROLOGIC : Coherent, no facial asymmetry, no other gross focality Principal Dx & Hospital Course #1 = Principal Diagnosis (1) Complicated UTI (urinary tract infection): (1) Complicated UTI (urinary tract infection): Plan: Recurrent/persistent ESBL E. coli UTI infections Urine culture: E. 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 They are made aware of her discharge today and follow-up with her as outpatient. Right foot wound Sustained after injury with broken glass Status post suture removal at bedside by Dr. Mendoza, 10/20 Wound healing well DM 2 on Trulicity, well-controlled as of recent hemoglobin A1c of 5.4 last July 2022 hx NAFLD GERD/IBS, baseline symptoms hx chronic back pain/sacroiliitis anxiety/mood disorder, stable DVT prophylaxis with Lovenox subcu Full code Disposition discharge to home with IV antibiotics to be administered at [facility], US guided IV was placed on 10/22 and care instructions will be provided to patient. Pt was seen and examined and care coordinated with Dr. Liang. Discussed with patient and nurse at beside. Discharge Exam Gen: WD/WN, female, obese, sitting at bedside NAD, A&O x3 HEENT: Normocephalic, atraumatic, conjunctivae moist, sclerae anicteric, mucous membranes moist. Lung: Clear to Auscultation bilaterally, no wheezes/rales/rhonchi Heart: Regular rate, regular rhythm, no murmurs, rubs, or gallops Abdomen: Soft, NT, ND +BS x 4 Extremities: No edema Skin: Warm, no rash, negative turgor. Updated Medication List Medication Instructions Recorded Confirmed Type cefdinir 300 mg capsule 300 mg PO BID #14 caps 10/17/22 10/19/22 Rx buspirone 5 mg tablet 5 mg PO BID 10/19/22 10/19/22 History citalopram 40 mg tablet 40 mg PO DAILY 10/19/22 10/19/22 History cyclobenzaprine 10 mg tablet 10 mg PO TID PRN Muscle Spasm 10/19/22 10/19/22 History dulaglutide 4.5 mg/0.5 mL 4.5 mg subcut WK 10/19/22 10/19/22 History subcutaneous pen injector (Trulicity) duloxetine 30 mg capsule,delayed 30 mg PO DAILY 10/19/22 10/19/22 History release omeprazole 20 mg capsule,delayed 20 mg PO DAILY 10/19/22 10/19/22 History release ertapenem 1 gram solution for 1 g IV DAILY 10 days #10 ea 10/22/22 Rx injection Hospital Stay Data Consultations 10/19/22 21:20 ED Decision to Admit Stat 10/20/22 02:32 Consult Urology Routine 10/20/22 08:34 Consult Infectious Diseases Routine Pending Results Patient Have Any Pending Studies at Discharge: No Discharge Instructions Given to Patient (Per Discharging Provider) MEDICATION CHANGES: IV Ertapenem 1g daily for a total for 14 days. This will complete on 10/31/22. You will receive this through [facility]. RECOMMENDATIONS FOR FOLLOW-UP: Please follow-up with primary care provider as scheduled. We will complete a 14-day course of IV antibiotics for your urinary tract infection. You will need to follow-up with urology as outpatient for further investigation of recurrent urinary tract infections. [facility] urology has been made aware of your discharge and will contact you to arrange follow-up appointment. If you do not hear from them in 1 week please call their office for follow-up. Number has been provided in your discharge paperwork. Please refer to the instructions provided at discharge for care of your IV site while at home, bathing and activity. Please continue all other medications as prescribed. Recommend daily probiotic while on antibiotic therapy. Recommend staying well-hydrated and keeping blood sugars under good control. OTHER INSTRUCTIONS: Seek medical attention if you have: * temperature above 101 * chest pain or trouble breathing * abdominal pain, nausea, vomiting * diarrhea, dark stools or bloody stools * any unanswered questions or concerns Call 911 if symptoms are severe. Please take good care of yourself. It has been a pleasure taking care of you. Please take care of yourself. If you have any questions regarding your recent hospitalization please contact [facility] and request Smita Dickey @ [phone]. Bela Munoz PA-C Total Time Total Time Spent Total Time Spent (In Minutes): 45 minutes Supervising Physician Co-Signing Physician Notes Attending addendum: The patient was seen and examined in medical floor She has been feeling much better and denies any symptoms Denies any urinary symptoms, nausea no vomiting, any fever and no chills She will be discharged home this afternoon on IV antibiotic On examination Sitting at the edge of the bed without any acute distress Hemodynamically stable and afebrile Chest-clear to auscultate bilaterally Heart-S1-S2, regular Abdomen-benign Extremities-trace edema bilaterally Her labs, medications reviewed Has E. coli ESBL UTI has been getting ertapenem which will be continued to finish the course She will be discharged home this afternoon Agree with assessment plan as outlined above by Kristie liang
== END 2022-10-23 13:14 | disposition home or self-care (01) | DRG 690 ==
LOC: ED 18:22 → 3E 21:52 → SUATTDRO 21:52 → 3E 22:46